=== PATIENT | female | born 1975 | race African-American/Black ===

== ENCOUNTER 2016-08-31 19:28 | Emergency (ER) | payer SELFPAY ==
[2016-08-31 19:44] VITALS: BP 137/77
[2016-08-31] MEDS ORDERED: ONDANSETRON 4 MG TAB.RAPDIS PO ONE (19:53)
--- NOTE | 2016-08-31 19:53 | ER Document Report ---
ED Medical Screen (RME) - General Stated Complaint: CHEST PAIN,SHORTNESS OF BREATH Mode of Arrival: Ambulatory Information source: Patient Notes: Patient complains of left-sided chest pain that radiates to shoulder that started around 6 PM today. Some shortness of breath. Patient complains of pain with deep inspiration. Patient also reports nausea and vomiting, but states vomiting symptoms started before her chest pain symptoms. hx: Elevated LFTs, pancreatitis, patient does report a family history of early heart disease I have greeted and performed a rapid initial assessment of this patient. A comprehensive ED assessment and evaluation of the patient, analysis of test results and completion of the medical decision making process will be conducted by additional ED providers. TRAVEL OUTSIDE OF THE [place] IN LAST 30 DAYS: No - Related Data Allergies/Adverse Reactions: tramadol Allergy (Severe, Verified 08/31/16 19:50) Edema oxycodone HCl [From Percocet] Allergy (Verified 08/31/16 19:50) Past Medical History - Past Medical History Cardiac Medical History: Reports: Hx Hypertension Pulmonary Medical History: Denies: Hx Tuberculosis Neurological Medical History: Reports: Hx Migraine Endocrine Medical History: Reports: Hx Diabetes Mellitus Type 2 Renal/ Medical History: Reports: Hx Ovarian Cysts Musculoskeltal Medical History: Reports Hx Arthritis, Reports Hx Musculoskeletal Deformity, Reports Hx Musculoskeletal Trauma Psychiatric Medical History: Reports: Hx Anxiety, Hx Depression Past Surgical History: Reports: Hx Cholecystectomy, Hx Gynecologic Surgery - Laparoscopic resection of ovarian cysts, Hx Hysterectomy - Part of liver removed with hysterectomy - Immunizations Hx Diphtheria, Pertussis, Tetanus Vaccination: No Physical Exam - Vital signs Vitals: Temp Pulse Resp BP Pulse Ox 97.9 F 85 16 137/77 H 97 08/31/16 19:43 08/31/16 19:43 08/31/16 19:43 08/31/16 19:43 08/31/16 19:43 - Cardiovascular Rhythm: Regular Heart sounds: S1 appreciated, S2 appreciated Murmur: No Course - Vital Signs Vital signs: Temp Pulse Resp BP Pulse Ox 97.9 F 85 16 137/77 H 97 08/31/16 19:43 08/31/16 19:43 08/31/16 19:43 08/31/16 19:43 08/31/16 19:43
[2016-08-31] MEDS ORDERED: ASPIRIN 81 MG TABLET, CHEWABLE PO ONE (19:54)
--- NOTE | 2016-09-01 18:15 | EKG REPORT ---
SEVERITY:- ABNORMAL ECG - SINUS RHYTHM CONSIDER LEFT VENTRICULAR HYPERTROPHY : Confirmed by: Duke Meza MD 01-Sep-2016 18:14:15
== END 2016-08-31 23:00 | disposition left against medical advice (07) ==
LOC: ER 19:28
DX: R07.1 Chest pain on breathing (principal); R06.02 Shortness of breath; R11.2 Nausea with vomiting, unspecified; I10 Essential (primary) hypertension; E11.9 Type 2 diabetes mellitus without complications; Z82.49 Family history of ischemic heart disease and other diseases of the circulatory system; Z88.5 Allergy status to narcotic agent; Z53.20 Procedure and treatment not carried out because of patient's decision for unspecified reasons
CPT/HCPCS: 93005; 99281; 71020; 93010; S0119

== ENCOUNTER 2017-07-20 12:03 | Emergency (ER) | payer SELFPAY ==
[2017-07-20] MEDS ORDERED: ONDANSETRON HCL INJ/PF 4 MG/2 ML SDV IV ONE (13:40)
[2017-07-20] MEDS ORDERED: NORMAL SALINE 1000 ML 1,000 ML IV ONE (13:40)
--- NOTE | 2017-07-20 13:42 | ER Document Report ---
ED General - General Chief Complaint: Nausea/Vomiting/Diarrhea Stated Complaint: NAUSEA,VOMITING,ABDOMINAL PAIN Time Seen by Provider: 07/20/17 13:31 Mode of Arrival: Ambulatory Information source: Patient Notes: 42-year-old female presents with complaints of generalized abdominal pain nausea vomiting diarrhea that started today. Patient notes that she has had multiple previous episodes of vomiting, 3 times she has had pancreatitis of unknown underlying cause. Patient denies any fevers or chills TRAVEL OUTSIDE OF THE [place] IN LAST 30 DAYS: No - HPI Onset: This morning Onset/Duration: Sudden Quality of pain: Cramping Severity: Mild Pain Level: 1 Associated symptoms: Diarrhea, Nausea, Vomiting Exacerbated by: Denies Relieved by: Denies Similar symptoms previously: Yes Recently seen / treated by doctor: No - Related Data Allergies/Adverse Reactions: tramadol Allergy (Severe, Verified 07/20/17 12:04) Edema oxycodone HCl [From Percocet] Allergy (Verified 07/20/17 12:04) Past Medical History - Social History Smoking Status: Current Every Day Smoker Cigarette use (# per day): Yes Chew tobacco use (# tins/day): No Smoking Education Provided: No Frequency of alcohol use: None Drug Abuse: None Family History: Arthritis, CAD, COPD, CVA, DM, Hyperlipidemia, Hypertension, Thyroid Disfunction Patient has suicidal ideation: No Patient has homicidal ideation: No - Past Medical History Cardiac Medical History: Reports: Hx Hypertension Pulmonary Medical History: Denies: Hx Tuberculosis Neurological Medical History: Reports: Hx Migraine Endocrine Medical History: Reports: Hx Diabetes Mellitus Type 2 Renal/ Medical History: Reports: Hx Ovarian Cysts. Denies: Hx Peritoneal Dialysis Musculoskeltal Medical History: Reports Hx Arthritis, Reports Hx Musculoskeletal Deformity, Reports Hx Musculoskeletal Trauma Psychiatric Medical History: Reports: Hx Anxiety, Hx Depression Past Surgical History: Reports: Hx Cholecystectomy, Hx Gynecologic Surgery - Laparoscopic resection of ovarian cysts, Hx Hysterectomy - Immunizations Hx Diphtheria, Pertussis, Tetanus Vaccination: No Review of Systems - Review of Systems Notes: REVIEW OF SYSTEMS: CONSTITUTIONAL : Denies fever, chills, or sweats. Denies recent illness. EENT: Denies eye, ear, throat, or mouth pain or symptoms. Denies nasal or sinus congestion or discharge. Denies throat, tongue, or mouth swelling or difficulty swallowing. CARDIOVASCULAR: Denies chest pain. Denies palpitations or racing or irregular heart beat. Denies ankle edema. RESPIRATORY: Denies cough, cold, or chest congestion. Denies shortness of breath, difficulty breathing, or wheezing. GASTROINTESTINAL: Admits nausea vomiting generalized abdominal pain GENITOURINARY: Denies difficulty urinating, painful urination, burning, frequency, blood in urine, or discharge. FEMALE GENITOURINARY: Denies vaginal bleeding, heavy or abnormal periods, irregular periods. Denies vaginal discharge or odor. MUSCULOSKELETAL: Denies back or neck pain or stiffness. Denies joint pain or swelling. SKIN: Denies rash, lesions or sores. HEMATOLOGIC : Denies easy bruising or bleeding. LYMPHATIC: Denies swollen, enlarged glands. NEUROLOGICAL: Denies confusion or altered mental status. Denies passing out or loss of consciousness. Denies dizziness or lightheadedness. Denies headache. Denies weakness or paralysis or loss of use of either side. Denies problems with gait or speech. Denies sensory loss, numbness, or tingling. Denies seizures. PSYCHIATRIC: Denies anxiety or stress. Denies depression, suicidal ideation, or homicidal ideation. ALL OTHER SYSTEMS REVIEWED AND NEGATIVE. PHYSICAL EXAMINATION: GENERAL: Well-appearing, well-nourished and in no acute distress. HEAD: Atraumatic, normocephalic. EYES: Pupils equal round and reactive to light, extraocular movements intact, conjunctiva are normal. ENT: Nares patent, oropharynx clear without exudates. Moist mucous membranes. NECK: Normal range of motion, supple without lymphadenopathy LUNGS: Breath sounds clear to auscultation bilaterally and equal. No wheezes rales or rhonchi. HEART: Regular rate and rhythm without murmurs ABDOMEN: Soft, minimally tender right upper quadrant postsurgical scars noted Female : deferred Musculoskeletal: Normal range of motion, no pitting or edema. No cyanosis. NEUROLOGICAL: Cranial nerves grossly intact. Normal speech, normal gait. Normal sensory, motor exams PSYCH: Normal mood, normal affect. SKIN: Warm, Dry, normal turgor, no rashes or lesions noted. Dictation was performed using [employer] recognition software Physical Exam - Vital signs Vitals: Temp Pulse Resp BP Pulse Ox 99.0 F 90 20 157/108 H 97 07/20/17 12:06 07/20/17 12:06 07/20/17 12:06 07/20/17 12:06 07/20/17 12:06 Course - Re-evaluation Re-evalutation: 07/20/17 13:42 Laboratory rule out pancreatitis been ordered, patient otherwise looks quite well no distress 07/20/17 15:33 Patient's lab work notes no sign of pancreatitis, patient will be treated as a viral syndrome with nausea control pain control After performing a Medical Screening Examination, I estimate there is LOW risk for ACUTE APPENDICITIS, BOWEL OBSTRUCTION, ACUTE CHOLECYSTITIS, PERFORATED DIVERTICULITIS, INCARCERATED HERNIA, PANCREATITIS, PELVIC INFLAMMATORY DISEASE, PERFORATED ULCER, ECTOPIC , or TUBO-OVARIAN ABSCESS, thus I consider the discharge disposition reasonable. Also, there is no evidence or peritonitis , sepsis, or toxicity. I have reevaluated this patient multiple times and no significant life threatening changes are noted. The patient and I have discussed the diagnosis and risks, and we agree with discharging home with close follow-up with the understanding that symptoms and presentations can change. We also discussed returning to the Emergency Department immediately if new or worsening symptoms occur. We have discussed the symptoms which are most concerning (e.g., bloody stool, fever, changing or worsening pain, vomiting) that necessitate immediate return. - Vital Signs Vital signs: Temp Pulse Resp BP Pulse Ox 99.0 F 90 20 157/108 H 97 07/20/17 12:06 07/20/17 12:06 07/20/17 12:06 07/20/17 12:06 07/20/17 12:06 - Laboratory Result Diagrams: 07/20/17 14:06 07/20/17 14:40 Laboratory results interpreted by me: 07/20/17 07/20/17 14:06 14:40 WBC 12.9 H RDW 14.1 H Chloride 112 H AST 11 L Total Protein 6.1 L Discharge - Discharge Clinical Impression: Nausea vomiting and diarrhea Abdominal pain Qualifiers: Abdominal location: epigastric Qualified Code(s): R10.13 - Epigastric pain Hypertension Qualifiers: Hypertension type: essential hypertension Qualified Code(s): I10 - Essential ( primary) hypertension Condition: Stable Disposition: HOME, SELF-CARE Instructions: Abdominal Pain ([facility]) Additional Instructions: Follow up with your physician tomorrow for further care or return to the ED IMMEDIATELY if symptoms worsen or new concerns occur. If you cannot afford to follow up with your primary care physician a list of low cost clinics have been provided at the end of your discharge papers as well. Prescriptions: Promethazine HCl [Phenergan 25 mg Tablet] 25 mg PO Q4HP PRN #14 tablet PRN Reason:
[2017-07-20 14:14] LABS: ABSOLUTE BASOPHILS # (AUTO) 0.1 10^3/uL (0.0-0.2); ABSOLUTE EOSINOPHILS # (AUTO) 0.1 10^3/uL (0.0-0.6); ABSOLUTE LYMPHOCYTES (AUTO) 4.4 10^3/uL (0.5-4.7); ABSOLUTE MONOCYTES (AUTO) 0.7 10^3/uL (0.1-1.4); ABSOLUTE NEUT (AUTO) 7.7 10^3/uL (1.7-8.2); BASOPHILS % (AUTO) 0.6 % (0-2); EOSINOPHILS % (AUTO) 0.6 % (0-6); HEMOGLOBIN 13.6 g/dL (12.0-15.5); LYMPHOCYTES % (AUTO) 34.2 % (13-45); MEAN CORPUSCULAR HEMOGLOBIN 28.1 pg (27.0-33.4); MEAN CORPUSCULAR HGB CONC 33.1 g/dL (32.0-36.0); MEAN CORPUSCULAR VOLUME 85 fl (80-97); MONOCYTES % (AUTO) 5.2 % (3-13); PLATELET COUNT 399 10^3/uL (150-450); RED BLOOD COUNT 4.83 10^6/uL (3.72-5.28); RED CELL DISTRIBUTION WIDTH 14.1 % (11.5-14.0); SEGMENTED NEUTROPHILS % (AUTO) 59.4 % (42-78); TOTAL CELLS COUNTED % (AUTO) 100 %; WHITE BLOOD COUNT 12.9 10^3/uL (4.0-10.5)
[2017-07-20 15:19] LABS: ALANINE AMINOTRANSFERASE 27 U/L (9-52); ALBUMIN 3.7 g/dL (3.5-5.0); ALKALINE PHOSPHATASE 40 U/L (38-126); ANION GAP 5 (5-19); ASPARTATE AMINO TRANSFERASE 11 U/L (14-36); BILIRUBIN,DIRECT 0.3 mg/dL (0.0-0.4); BILIRUBIN,TOTAL 0.3 mg/dL (0.2-1.3); BLOOD UREA NITROGEN 10 mg/dL (7-20); CALCIUM 9.2 mg/dL (8.4-10.2); CARBON DIOXIDE 26 mmol/L (22-30); CHLORIDE 112 mmol/L (98-107); GLUCOSE 77 mg/dL (75-110); LIPASE 82.6 U/L (23-300); POTASSIUM 3.9 mmol/L (3.6-5.0); SODIUM 143.3 mmol/L (137-145); TOTAL PROTEIN 6.1 g/dL (6.3-8.2)
[2017-07-20] MEDS ORDERED: LISINOPRIL 10 MG TABLET PO ONE (15:48)
[2017-07-20 16:05] VITALS: BP 207/93
== END 2017-07-20 16:03 | disposition home or self-care (01) ==
LOC: ER 12:03
DX: R11.2 Nausea with vomiting, unspecified (principal); R19.7 Diarrhea, unspecified; R10.84 Generalized abdominal pain; I10 Essential (primary) hypertension; F17.210 Nicotine dependence, cigarettes, uncomplicated; E11.9 Type 2 diabetes mellitus without complications; Z90.49 Acquired absence of other specified parts of digestive tract; Z90.710 Acquired absence of both cervix and uterus; Z88.5 Allergy status to narcotic agent
CPT/HCPCS: 99283; 96361; 96374; 36415; 83690; 85025; 80053; J2405; J7030

== ENCOUNTER 2020-04-12 07:51 | Emergency (ER) | payer SELFPAY ==
[2020-04-12] MEDS ORDERED: NORMAL SALINE 1000 ML 1,000 ML IV ONE ×2 (08:38→10:50)
[2020-04-12] MEDS ORDERED: ONDANSETRON HCL INJ/PF 4 MG/2 ML SDV IV ONE (08:38)
[2020-04-12] MEDS ORDERED: DICYCLOMINE HCL 20 MG TABLET PO ONE (08:39)
--- NOTE | 2020-04-12 08:43 | ER Document Report ---
ED GI/ - General Chief Complaint: Nausea/Vomiting/Diarrhea Stated Complaint: FEVER/NAUSEA/VOMITING/COUGH Time Seen by Provider: 04/12/20 08:17 Primary Care Provider: ROCHELLE WHITMAN MD [ACTIVE STAFF] - Follow up as needed Mode of Arrival: Ambulatory Information source: Patient Notes: Patient presents complaining of nausea vomiting diarrhea for the past 5 days. Patient does report multiple sick contacts in the household. Patient states that 3 days ago she did have a fever of 100.3. Patient states yesterday it was 99.3. Patient reports lower abdominal pain for the past 4 days that is crampy in nature. Patient reports decreased urine output for the past 2 days. Patient has had some headache pain. Patient is hypertensive at this time reports a previous history of hypertension although was taken off of her blood pressure medication for years ago as her blood pressure had come down and her doctor did not feel that she needed to be on it any longer. TRAVEL OUTSIDE OF THE [place] IN LAST 30 DAYS: No - HPI Patient complains to provider of: Abdominal pain, Diarrhea, Vomiting Onset: Other - 5 days Timing/Duration: Persistent Quality of pain: Cramping Pain Level: 4 Location: Other - Generalized abdomen Vaginal bleeding (Compared to normal period): None Menstrual period history: denies: Associated symptoms: Diarrhea, Nausea, Vomiting. denies: Chest pain, Dysuria, Urinary hesitancy, Urinary frequency, Urinary retention, Urinary urgency Exacerbated by: Denies Relieved by: Denies Similar symptoms previously: No Recently seen / treated by doctor: No - Related Data Allergies/Adverse Reactions: tramadol Allergy (Severe, Verified 07/20/17 12:04) Edema oxycodone HCl [From Percocet] Allergy (Verified 07/20/17 12:04) Past Medical History - General Information source: Patient - Social History Smoking Status: Current Every Day Smoker Frequency of alcohol use: None Drug Abuse: None Occupation: Works from home Lives with: Family Family History: Arthritis, CAD, COPD, CVA, DM, Hyperlipidemia, Hypertension, Thyroid Disfunction - Past Medical History Cardiac Medical History: Reports: Hx Hypertension Pulmonary Medical History: Denies: Hx Tuberculosis Neurological Medical History: Reports: Hx Migraine Endocrine Medical History: Reports: Hx Diabetes Mellitus Type 2 Renal/ Medical History: Reports: Hx Ovarian Cysts. Denies: Hx Peritoneal Dialysis Musculoskeletal Medical History: Reports Hx Arthritis, Reports Hx Musculoskeletal Deformity, Reports Hx Musculoskeletal Trauma Psychiatric Medical History: Reports: Hx Anxiety, Hx Depression Past Surgical History: Reports: Hx Cholecystectomy, Hx Gynecologic Surgery - Laparoscopic resection of ovarian cysts, Hx Hysterectomy - Immunizations Hx Diphtheria, Pertussis, Tetanus Vaccination: No Review of Systems - Review of Systems Constitutional: Fever EENT: No symptoms reported Cardiovascular: No symptoms reported. denies: Chest pain Respiratory: No symptoms reported. denies: Cough, Short of breath Gastrointestinal: Abdominal pain, Diarrhea, Nausea, Vomiting, Poor fluid intake Genitourinary: No symptoms reported. denies: Dysuria, Flank pain Female Genitourinary: No symptoms reported Musculoskeletal: No symptoms reported. denies: Back pain Skin: No symptoms reported Hematologic/Lymphatic: No symptoms reported Neurological/Psychological: No symptoms reported Physical Exam - Vital signs Vitals: Temp Pulse Resp BP Pulse Ox 98.8 F 93 18 228/141 H 97 04/12/20 07:58 04/12/20 07:58 04/12/20 07:58 04/12/20 07:58 04/12/20 07:58 - Notes Notes: PHYSICAL EXAMINATION: GENERAL: Well-appearing and in no acute distress. HEAD: Atraumatic, normocephalic. EYES: sclera anicteric, conjunctiva are normal. ENT: nares patent. Moist mucous membranes. NECK: Normal range of motion, supple without lymphadenopathy LUNGS: CTAB and equal. No wheezes rales or rhonchi. HEART: Regular rate and rhythm without murmurs ABDOMEN: Soft, diffuse abdominal tenderness, normal bowel sounds, no guarding. EXTREMITIES: Normal range of motion, no pitting edema. No cyanosis. BACK: Bilateral CVA tenderness, left worse than right NEUROLOGICAL: Cranial nerves grossly intact. Normal speech. PSYCH: Normal mood, normal affect. SKIN: Warm, Dry, normal turgor, no rashes or lesions noted Course - Re-evaluation Re-evalutation: 04/12/20 10:12 On repeat examination, patient reports nausea is improved although continues with abdominal pain. Additional medication ordered at this time. Patient con tinues hypertensive with blood pressure 206/110. 04/12/20 12:49 Patient reports mild abdominal cramping although states is not as severe as it was. Patient does continue hypertensive with manual blood pressure of 210/100. Consulted with Dr. Campos who recommends giving a dose of clonidine as well as additional 10 mg of lisinopril and monitoring at this time. Patient is agreeable with plan of care. 04/12/20 13:31 Pressure is trending downward at this time, patient advised that the will need to be restarted on her medication and monitor her blood pressure and keep a log for the primary doctor. Patient otherwise nontoxic in appearance. The patient was evaluated during the global Covid 19 pandemic, and that diagnosis was suspected/considered upon their initial presentation. Their evaluation, treatment and testing was consistent with current guidelines for patients who present with complaints or symptoms that may be related to Covid 19. Patient presents with symptoms worrisome for possible Covid 19. Patient does not have emergency worrying symptoms such as difficulty breathing, shortness of breath, chest pain, pressure, confusion or cyanosis. Patient appears suitable for disc harge as they are not of an advanced age, do not have any chronic medical conditions such as diabetes, CAD, immune deficiency, chronic lung disease or chronic kidney disease. Patient's vital signs are stable and patient is nontoxic in appearance. Good return precautions have been discussed with andrea rodgers, patient verbalized understanding and is agreeable with discharge plan of care at this time. - Vital Signs Vital signs: Temp Pulse Resp BP Pulse Ox 98.8 F 93 18 195/115 H 100 04/12/20 07:58 04/12/20 07:58 04/12/20 13:01 04/12/20 13:01 04/12/20 13:01 - Laboratory Result Diagrams: 04/12/20 08:55 04/12/20 08:55 Laboratory results interpreted by me: 04/12/20 04/12/20 04/12/20 08:55 08:55 11:30 WBC 12.7 H RDW 15.1 H Absolute Neuts (auto) 9.0 H Carbon Dioxide 20 L Urine Blood SMALL H Ur Leukocyte Esterase SMALL H Labs- All tests 24 hr 04/12/20 04/12/20 04/12/20 08:55 08:55 11:30 WBC 12.7 H RBC 5.02 Hgb 13.7 Hct 41.6 MCV 83 MCH 27.3 MCHC 32.9 RDW 15.1 H Plt Count 416 Lymph % (Auto) 22.9 Millard % (Auto) 5.4 Eos % (Auto) 0.5 Baso % (Auto) 0.4 Absolute Neuts (auto) 9.0 H Absolute Lymphs (auto) 2.9 Absolute Monos (auto) 0.7 Absolute Eos (auto) 0.1 Absolute Basos (auto) 0.0 Seg Neutrophils % 70.8 Sodium 137.8 Potassium 4.1 Chloride 107 Carbon Dioxide 20 L Anion Gap 11 BUN 10 Creatinine 0.64 Est GFR ( Amer) > 60 Est GFR (MDRD) Non-Af > 60 Glucose 104 Calcium 9.7 Total Bilirubin 0.7 Direct Bilirubin 0.2 Neonat Total Bilirubin Not Reportable Neonat Direct Bilirubin Not Reportable Neonat Indirect Bili Not Reportable AST 19 ALT 11 Alkaline Phosphatase 50 Total Protein 7.6 Albumin 4.4 Lipase 37.1 Urine Color YELLOW Urine Appearance CLEAR Urine pH 5.0 Ur Specific [place] 1.039 Urine Protein NEGATIVE Urine Glucose (UA) NEGATIVE Urine Ketones NEGATIVE Urine Blood SMALL H Urine Nitrite NEGATIVE Urine Bilirubin NEGATIVE Urine Urobilinogen NEGATIVE Ur Leukocyte Esterase SMALL H Urine WBC (Auto) 4 Urine RBC (Auto) 5 U Hyaline Cast (Auto) 1 Urine Bacteria (Auto) TRACE Squamous Epi Cells Auto 3 Urine Mucus (Auto) MOD Urine Ascorbic Acid NEGATIVE COVID-19 Source 04/12/20 12:17 WBC RBC Hgb Hct MCV MCH MCHC RDW Plt Count Lymph % (Auto) Millard % (Auto) Eos % (Auto) Baso % (Auto) Absolute Neuts (auto) Absolute Lymphs (auto) Absolute Monos (auto) Absolute Eos (auto) Absolute Basos (auto) Seg Neutrophils % Sodium Potassium Chloride Carbon Dioxide Anion Gap BUN Creatinine Est GFR ( Amer) Est GFR (MDRD) Non-Af Glucose Calcium Total Bilirubin Direct Bilirubin Neonat Total Bilirubin Neonat Direct Bilirubin Neonat Indirect Bili AST ALT Alkaline Phosphatase Total Protein Albumin Lipase Urine Color Urine Appearance Urine pH Ur Specific [place] Urine Protein Urine Glucose (UA) Urine Ketones Urine Blood Urine Nitrite Urine Bilirubin Urine Urobilinogen Ur Leukocyte Esterase Urine WBC (Auto) Urine RBC (Auto) U Hyaline Cast (Auto) Urine Bacteria (Auto) Squamous Epi Cells Auto Urine Mucus (Auto) Urine Ascorbic Acid COVID-19 Source See comment - Diagnostic Test Radiology reviewed: Reports reviewed Discharge - Discharge Clinical Impression: Nausea vomiting and diarrhea, Encounter for screening laboratory testing for COVID-19 virus Hypertension Qualifiers: Hypertension type: unspecified Qualified Code(s): I10 - Essential (primary) hypertension Condition: Stable Disposition: HOME, SELF-CARE Instructions: COVID-19 Guidance for Persons Under Investigation, Antinausea Medication ([facility]), Diarrhea, Nonspecific ([facility]), High Blood Pressure, Requiring Treatment ([facility]), Intravenous (IV) Fluids ([facility]), Vomiting ([facility]) Additional Instructions: Return immediately for any new or worsening symptoms Followup with your primary care provider, call tomorrow to make a followup appointment Home quarantine as instructed while you wait for your Covid results Monitor your blood pressure daily and keep a log to present to your primary doctor for review. Obtain stool specimen and bring to lab for further evaluation Prescriptions: Dicyclomine HCl [Bentyl 20 mg Tablet] 20 mg PO QID PRN #12 tablet PRN Reason: Lisinopril/Hydrochlorothiazide [Lisinopril-Hctz 20-12.5 mg Tab] 1 each PO DAILY #30 tablet Ondansetron [Zofran Odt 4 mg Tablet] 1 tab PO Q6H #15 tab.rapdis Forms: Follow-Up Laboratory Testing, Return to Work Referrals: ROCHELLE WHITMAN MD [ACTIVE STAFF] - Follow up as needed
[2020-04-12 09:26] LABS: ABSOLUTE EOSINOPHILS # (AUTO) 0.1 10^3/uL (0.0-0.6); ABSOLUTE LYMPHOCYTES (AUTO) 2.9 10^3/uL (0.5-4.7); ABSOLUTE MONOCYTES (AUTO) 0.7 10^3/uL (0.1-1.4); BASOPHILS % (AUTO) 0.4 % (0-2); EOSINOPHILS % (AUTO) 0.5 % (0-6); HEMATOCRIT 41.6 % (36.0-47.0); HEMOGLOBIN 13.7 g/dL (12.0-15.5); LYMPHOCYTES % (AUTO) 22.9 % (13-45); MEAN CORPUSCULAR HEMOGLOBIN 27.3 pg (27.0-33.4); MEAN CORPUSCULAR HGB CONC 32.9 g/dL (32.0-36.0); MEAN CORPUSCULAR VOLUME 83 fl (80-97); MONOCYTES % (AUTO) 5.4 % (3-13); PLATELET COUNT 416 10^3/uL (150-450); RED BLOOD COUNT 5.02 10^6/uL (3.72-5.28); RED CELL DISTRIBUTION WIDTH 15.1 % (11.5-14.0); SEGMENTED NEUTROPHILS % (AUTO) 70.8 % (42-78); TOTAL CELLS COUNTED % (AUTO) 100 %; WHITE BLOOD COUNT 12.7 10^3/uL (4.0-10.5)
[2020-04-12 09:46] LABS: ALBUMIN 4.4 g/dL (3.5-5.0); ALKALINE PHOSPHATASE 50 U/L (38-126); ANION GAP 11 (5-19); ASPARTATE AMINO TRANSFERASE 19 U/L (14-36); BILIRUBIN,DIRECT 0.2 mg/dL (0.0-0.4); BILIRUBIN,TOTAL 0.7 mg/dL (0.2-1.3); BLOOD UREA NITROGEN 10 mg/dL (7-20); CALCIUM 9.7 mg/dL (8.4-10.2); CARBON DIOXIDE 20 mmol/L (22-30); CHLORIDE 107 mmol/L (98-107); GLUCOSE 104 mg/dL (75-110); TOTAL PROTEIN 7.6 g/dL (6.3-8.2)
[2020-04-12 10:02] LABS: POTASSIUM 4.1 mmol/L (3.6-5.0)
[2020-04-12] MEDS ORDERED: LISINOPRIL 10 MG TABLET PO ONE ×2 (10:10→12:48)
[2020-04-12] MEDS ORDERED: HYDROCHLOROTHIAZIDE 12.5 MG TABLET PO ONE (10:10)
[2020-04-12] MEDS ORDERED: FENTANYL CITRATE INJ/PF 100 MCG/2 ML AMPUL IV ONE (10:11)
--- NOTE | 2020-04-12 11:14 | RADIOLOGY REPORT (SQ) ---
EXAM DESCRIPTION: CT ABD/PELVIS WITH IV ONLY IMAGES COMPLETED DATE/TIME: 04/12/2020 11:02 am REASON FOR STUDY: abd pain, N/v/d COMPARISON: None. TECHNIQUE: CT scan of the abdomen and pelvis performed using helical scanning technique with dynamic intravenous contrast injection. No oral contrast. Images reviewed with lung, soft tissue, and bone windows. Reconstructed coronal and sagittal MPR images reviewed. Delayed images for evaluation of the urinary system also acquired. All images stored on PACS. All CT scanners at this facility use dose modulation, iterative reconstruction, and/or weight based d osing when appropriate to reduce radiation dose to as low as reasonably achievable (ALARA). [facility]: Dose Right [facility]: CareDose [facility]: Dose Right [facility]: Teradose 4D [facility]: Paylocity CONTRAST TYPE AND DOSE: contrast/concentration: Isovue 350.00 mmol/ml; Total Contrast Delivered: 100 .0 ml; Total Saline Delivered: 51.3 ml RENAL FUNCTION: Creatinine 0.64 RADIATION DOSE: CT Rad equipment meets quality standard of care and radiation dose reduction techniq ues were employed. CTDIvol: 12.2 - 16.2 mGy. DLP: 1563 mGy-cm.. LIMITATIONS: None. FINDINGS: LOWER CHEST: No significant findings. No nodules or infiltrates. LIVER: Normal size. No masses. No dilated ducts. SPLEEN: Normal size. No focal lesions. PANCREAS: No masses. No significant calcifications. No adjacent inflammation or peripancreatic fluid collections. Pancreatic duct not dilated. GALLBLADDER: Surgically absent. ADRENAL GLANDS: No significant masses or asymmetry. RIGHT KIDNEY AND URETER: No solid masses. No significant calcifications. No hydronephrosis or hyd roureter. LEFT KIDNEY AND URETER: No solid masses. No significant calcifications. No hydronephrosis or hydr oureter. AORTA AND VESSELS: No aneurysm. No dissection. Renal arteries, SMA, celiac without stenosis. RETROPERITONEUM: No retroperitoneal adenopathy, hemorrhage or masses. BOWEL AND PERITONEAL CAVITY: No masses or inflammatory changes. No free fluid or peritoneal masses. APPENDIX: Normal. PELVIS: No mass. No free fluid. Normal bladder. ABDOMINAL WALL: Small fat containing supraumbilical hernia. No subcutaneous masses. BONES: No acute bony abnormality. No suspicious lytic or blastic osseous lesions. OTHER: No other significant finding. IMPRESSION: No evidence of intestinal obstruction or other acute intra-abdominal/pelvic process. TECHNICAL DOCUMENTATION: JOB ID: [id number] Quality ID # [id number]: Final reports with documentation of one or more dose reduction techniques (e.g., Au tomated exposure control, adjustment of the mA and/or kV according to patient size, use of iterative reconstruction technique) 2010 [email or web address]- All Rights Reserved Reading location - IP/workstation name: [email or web address]
[2020-04-12 11:46] LABS: APPEARANCE,URINE CLEAR; BILIRUBIN,URINE NEGATIVE (NEGATIVE); COLOR,URINE YELLOW; GLUCOSE, URINE NEGATIVE (NEGATIVE); KETONES,URINE NEGATIVE (NEGATIVE); LEUKOCYTE ESTERASE,URINE SMALL (NEGATIVE); NITRITE,URINE NEGATIVE (NEGATIVE); PROTEIN,URINE NEGATIVE (NEGATIVE); URINE SPECIFIC GRAVITY 1.039; UROBILINOGEN,URINE NEGATIVE mg/dL (<2.0)
[2020-04-12] MEDS ORDERED: CLONIDINE HCL 0.1 MG TABLET PO ONE (12:48)
[2020-04-12 13:44] VITALS: BP 195/115
== END 2020-04-12 14:04 | disposition home or self-care (01) ==
LOC: ER 07:51
DX: R11.2 Nausea with vomiting, unspecified (principal); R19.7 Diarrhea, unspecified; R50.9 Fever, unspecified; R10.30 Lower abdominal pain, unspecified; R33.9 Retention of urine, unspecified; R51.9 Headache, unspecified; R10.84 Generalized abdominal pain; R10.9 Unspecified abdominal pain; R63.0 Anorexia; I10 Essential (primary) hypertension; Z20.828 Contact with and (suspected) exposure to other viral communicable diseases
CPT/HCPCS: 99285; 96361; 96374; 96375; 36415; 87040; 83690; 85025; 87635; 87077; 80053; 81001; 87150 ×26; 74177; J3490; J3010; J2405; J7030; C9803

== ENCOUNTER 2020-04-18 20:51 | Observation (INO) | payer SELFPAY ==
--- NOTE | 2020-04-18 21:50 | ER Document Report ---
ED Medical Screen (RME) - General Stated Complaint: BURNING IN THROAT AND CHEST Time Seen by Provider: 04/18/20 21:45 Mode of Arrival: Ambulatory Information source: Patient Notes: Patient is a 45-year-old -[place] female coming in today with severe sore throat and a burning in the middle of her chest. She was here recently and was seen for something similar. Her Covid test was negative. She states that s he did not have any other testing done. General: Nontoxic Regular rate and rhythm Clear to auscultation bilaterally Posterior pharynx without exudates or swelling Skin without rash. I have greeted and performed a rapid initial assessment of this patient. A comprehensive ED assessment and evaluation of the patient, analysis of test results and completion of the medical decision making process will be conducted by additional ED providers. TRAVEL OUTSIDE OF THE [place] IN LAST 30 DAYS: No - Related Data Allergies/Adverse Reactions: tramadol Allergy (Severe, Verified 07/20/17 12:04) Edema oxycodone HCl [From Percocet] Allergy (Verified 07/20/17 12:04) Past Medical History - Past Medical History Cardiac Medical History: Reports: Hx Hypertension Pulmonary Medical History: Denies: Hx Tuberculosis Neurological Medical History: Reports: Hx Migraine Endocrine Medical History: Reports: Hx Diabetes Mellitus Type 2 Renal/ Medical History: Reports: Hx Ovarian Cysts. Denies: Hx Peritoneal Dialysis Musculoskeltal Medical History: Reports Hx Arthritis, Reports Hx Musculoskeletal Deformity, Reports Hx Musculoskeletal Trauma Psychiatric Medical History: Reports: Hx Anxiety, Hx Depression Past Surgical History: Reports: Hx Cholecystectomy, Hx Gynecologic Surgery - Laparoscopic resection of ovarian cysts, Hx Hysterectomy - Immunizations Hx Diphtheria, Pertussis, Tetanus Vaccination: No Physical Exam - Vital signs Vitals: Temp Pulse Resp BP Pulse Ox 98.6 F 77 18 178/101 H 98 04/18/20 20:59 04/18/20 20:59 04/18/20 20:59 04/18/20 20:59 04/18/20 20:59 Course - Vital Signs Vital signs: Temp Pulse Resp BP Pulse Ox 98.6 F 77 18 178/101 H 98 04/18/20 20:59 04/18/20 20:59 04/18/20 20:59 04/18/20 20:59 04/18/20 20:59
--- NOTE | 2020-04-18 22:29 | RADIOLOGY REPORT (SQ) ---
CHEST X-RAY 1 VIEW on 04/18/2020 at 9:54 PM CLINICAL INDICATION: Chest pain COMPARISON: 08/31/2016 FINDINGS: The lungs are clear. Cardiac, hilar and mediastinal contours are within normal limits. Pulmonary vascularity is within normal limits. No bony abnormality is noted. IMPRESSION: No active disease.
[2020-04-18 22:45] LABS: ABSOLUTE BASOPHILS # (AUTO) 0.1 10^3/uL (0.0-0.2); ABSOLUTE EOSINOPHILS # (AUTO) 0.1 10^3/uL (0.0-0.6); ABSOLUTE LYMPHOCYTES (AUTO) 5.1 10^3/uL (0.5-4.7); ABSOLUTE MONOCYTES (AUTO) 0.8 10^3/uL (0.1-1.4); ABSOLUTE NEUT (AUTO) 7.6 10^3/uL (1.7-8.2); BASOPHILS % (AUTO) 0.8 % (0-2); HEMATOCRIT 39.9 % (36.0-47.0); HEMOGLOBIN 13.3 g/dL (12.0-15.5); LYMPHOCYTES % (AUTO) 36.9 % (13-45); MEAN CORPUSCULAR HEMOGLOBIN 27.9 pg (27.0-33.4); MEAN CORPUSCULAR HGB CONC 33.4 g/dL (32.0-36.0); MEAN CORPUSCULAR VOLUME 83 fl (80-97); MONOCYTES % (AUTO) 5.8 % (3-13); PLATELET COUNT 409 10^3/uL (150-450); RED BLOOD COUNT 4.79 10^6/uL (3.72-5.28); RED CELL DISTRIBUTION WIDTH 14.7 % (11.5-14.0); SEGMENTED NEUTROPHILS % (AUTO) 55.5 % (42-78); TOTAL CELLS COUNTED % (AUTO) 100 %; WHITE BLOOD COUNT 13.7 10^3/uL (4.0-10.5)
[2020-04-18 22:54] LABS: APPEARANCE,URINE SLIGHTLY-CLOUDY; BILIRUBIN,URINE NEGATIVE (NEGATIVE); COLOR,URINE YELLOW; GLUCOSE, URINE NEGATIVE (NEGATIVE); KETONES,URINE NEGATIVE (NEGATIVE); PROTEIN,URINE NEGATIVE (NEGATIVE); URINE SPECIFIC GRAVITY 1.021; UROBILINOGEN,URINE NEGATIVE mg/dL (<2.0)
[2020-04-18 23:04] LABS: A TYPE INFLUENZA AG NEGATIVE (NEGATIVE); B INFLUENZA AG NEGATIVE (NEGATIVE)
[2020-04-18 23:11] LABS: ALBUMIN 4.2 g/dL (3.5-5.0); ALKALINE PHOSPHATASE 55 U/L (38-126); ANION GAP 11 (5-19); ASPARTATE AMINO TRANSFERASE 16 U/L (14-36); BILIRUBIN,DIRECT 0.1 mg/dL (0.0-0.4); BILIRUBIN,TOTAL 0.3 mg/dL (0.2-1.3); BLOOD UREA NITROGEN 16 mg/dL (7-20); CARBON DIOXIDE 21 mmol/L (22-30); CHLORIDE 107 mmol/L (98-107); GLUCOSE 104 mg/dL (75-110); POTASSIUM 4.1 mmol/L (3.6-5.0); TOTAL PROTEIN 7.1 g/dL (6.3-8.2)
--- NOTE | 2020-04-19 00:22 | ER Document Report ---
Entered by JESIKA HOSKINS SCRIBE 04/19/20 0007 Acting as scribe for:LORENZA MERINO, DO ED General - General Chief Complaint: Flu Symptoms Stated Complaint: BURNING IN THROAT AND CHEST Time Seen by Provider: 04/18/20 21:45 Primary Care Provider: ROCHELLE WHITMAN MD [Primary Care Provider] - Follow up as needed Mode of Arrival: Ambulatory Information source: Patient Notes: This 45 year old female patient presents to the emergency department today with complaints of reproducible chest wall pain and a sore throat, stating her chest and throat feel like they are "on fire". Patient mentions that she was here x4-5 days ago for nausea, vomiting, and diarrhea and she was quite hypertensive then which is why her chest pain scared her today. She mentions she has a cough and nasal congestion today. She denies any sick contacts. TRAVEL OUTSIDE OF THE [place] IN LAST 30 DAYS: No - Related Data Allergies/Adverse Reactions: tramadol Allergy (Severe, Verified 07/20/17 12:04) Edema oxycodone HCl [From Percocet] Allergy (Verified 07/20/17 12:04) Home Medications: zofran, lisinopril/HCTZ, bentyl Past Medical History - General Information source: Patient - Social History Smoking Status: Current Every Day Smoker Cigarette use (# per day): Yes Frequency of alcohol use: None Drug Abuse: None Lives with: Family Family History: Arthritis, CAD, COPD, CVA, DM, Hyperlipidemia, Hypertension, Thyroid Disfunction - Past Medical History Cardiac Medical History: Reports: Hx Hypertension Neurological Medical History: Reports: Hx Migraine Endocrine Medical History: Reports: Hx Diabetes Mellitus Type 2 Renal/ Medical History: Reports: Hx Ovarian Cysts Musculoskeletal Medical History: Reports Hx Arthritis, Reports Hx Musculoskeletal Deformity, Reports Hx Musculoskeletal Trauma Psychiatric Medical History: Reports: Hx Anxiety, Hx Depression Past Surgical History: Reports: Hx Cholecystectomy, Hx Gynecologic Surgery - Laparoscopic resection of ovarian cysts, Hx Hysterectomy - Immunizations Hx Diphtheria, Pertussis, Tetanus Vaccination: No Review of Systems - Review of Systems Constitutional: No symptoms reported EENT: See HPI, Nose congestion, Throat pain Cardiovascular: See HPI, Chest pain Respiratory: See HPI, Cough Gastrointestinal: See HPI, Diarrhea, Nausea, Vomiting Genitourinary: No symptoms reported Female Genitourinary: No symptoms reported Musculoskeletal: No symptoms reported Skin: No symptoms reported Hematologic/Lymphatic: No symptoms reported Neurological/Psychological: No symptoms reported -: Yes All other systems reviewed and negative Physical Exam - Vital signs Vitals: Temp Pulse Resp BP Pulse Ox 98.6 F 77 18 178/101 H 98 04/18/20 20:59 04/18/20 20:59 04/18/20 20:59 04/18/20 20:59 04/18/20 20:59 - Notes Notes: Physical Exam: General: Alert, morbidly obese. HEENT: Normocephalic. Atraumatic. PERRL. Extraocular movements intact. Oropharynx clear. Neck: Supple. Non-tender. Respiratory: No respiratory distress. Left anterior chest wall tenderness to palpation, reproducible chest pain. Clear and equal breath sounds bilaterally. Cardiovascular: Regular rate and rhythm. Abdominal: Morbidly obese. Non-tender. No distension. Normal Bowel Sounds. Back: No gross abnormalities. Extremities: Moves all four extremities. Upper extremities: Normal inspection. Normal ROM. Lower extremities: Normal inspection. No edema. Normal ROM. Neurological: Normal cognition. AAOx4. Normal speech. Psychological: Normal affect. Normal Mood. Skin: Warm. Dry. Normal color. Course - Re-evaluation Re-evalutation: 04/19/20 00:58 MDM Delightful 45 year old with poorly controlled htn - BP 228/141 last week - is here with htn and sore throat and nausea and chest pain. Do not feel this is ACS as pt is comfortable in appearance, ekg is without abnormality except LVH - longstanding htn - and her cxr is without failure. She may have a bit of a sore throat and is sore in her chest which is clearly palpable and reproducible. I have discussed this nice lady with Dr. Rosenbaum and Dr. Trevino and she will be admitted for further workup. - Vital Signs Vital signs: Temp Pulse Resp BP Pulse Ox 98.6 F 77 20 159/99 H 100 04/18/20 20:59 04/18/20 20:59 04/19/20 00:01 04/19/20 00:01 04/19/20 00:01 - Laboratory Result Diagrams: 04/18/20 22:20 04/18/20 22:20 Laboratory results interpreted by me: 04/18/20 04/18/20 04/18/20 22:20 22:20 22:20 WBC 13.7 H RDW 14.7 H Absolute Lymphs (auto) 5.1 H Carbon Dioxide 21 L Urine Blood SMALL H Leukocyte Esterase Rfl LARGE H - Diagnostic Test Radiology reviewed: Image reviewed, Reports reviewed - EKG Interpretation by Me EKG shows normal: Sinus rhythm Rate: Bradycardia Rhythm: NSR - Sinus Adalberto Nl Art LVH No st elevation or depression my interpretation. Discharge - Discharge Clinical Impression: Elevated troponin Hypertension Qualifiers: Hypertension type: unspecified Qualified Code(s): I10 - Essential (primary) hypertension Condition: Stable Disposition: ADMITTED OBSERVATION Admitting Provider: Dr. Trevino Unit Admitted: Telemetry Referrals: ROCHELLE WHITMAN MD [Primary Care Provider] - Follow up as needed I personally performed the services described in the documentation, reviewed and edited the documentation which was dictated to the scribe in my presence, and it accurately records my words and actions.
[2020-04-19] MEDS ORDERED: ASPIRIN 81 MG TABLET, CHEWABLE PO ONE (00:36)
[2020-04-19] MEDS ORDERED: FENTANYL CITRATE INJ/PF 100 MCG/2 ML AMPUL IV ONE (00:57)
[2020-04-19] MEDS ORDERED: ONDANSETRON HCL INJ/PF 4 MG/2 ML SDV IV ONE (00:57)
[2020-04-19] MEDS ORDERED: ONDANSETRON HCL INJ/PF 4 MG/2 ML SDV IV PRN (02:10)
--- NOTE | 2020-04-19 02:27 | PDOC H&P ---
History of Present Illness Admission Date/PCP: 04/19/20 01:16 ROCHELLE WHITMAN MD Patient complains of: chest pain History of Present Illness: SELIN BUSCH is a 45 year old female with a history of poorly controlled hypertension now presents with 2 days duration of retrosternal chest pain. She described the pain as burning and heaviness, 8/10 intensity, nonradiating, aggravated when lying back and gets better with leaning forward. She also states that she feels some pain with exertion. She states that she has burning neck pain which moves to her chest. She was seen at the emergency department 7 days back after she presented with symptoms of upper respiratory tract infection with associated nausea, vomiting and was discharged home with supportive pradip tment. On that visit she was also found to have very high blood pressure with a systolic around 200, diastolic between 110-110 and she was started on lisinopril/HCTZ. She states that previously she used to be on antihypertensive medication but was discontinued around 4 years back by her PCP and was controlled with lifestyle modifications and has not been checking her blood pressure regularly. She was tested for COVID-19 at her last encounter and the result is negative. She denies any fever, chills, cough, palpitation, headache, blurring of vision, weakness of extremities or any numbness or tingling. Past Medical History Cardiac Medical History: Reports: Hypertension Pulmonary Medical History: Denies: Tuberculosis Neurological Medical History: Reports: Migraine Endocrine Medical History: Reports: Diabetes Mellitus Type 2 Musculoskeltal Medical History: Reports: Arthritis Psychiatric Medical History: Reports: Depression Past Surgical History Past Surgical History: Reports: Cholecystectomy, Hysterectomy Social History Information Source: Patient Lives with: Family Smoking Status: Current Every Day Smoker Frequency of Alcohol Use: Social Hx Recreational Drug Use: Yes - for n/v Drugs: Marijuana - Advance Directive Resuscitation Status: Full Code Family History Family History: Arthritis, CAD, COPD, CVA, DM, Hyperlipidemia, Hypertension, Thyroid Disfunction Parental Family History Reviewed: Yes Children Family History Reviewed: Yes Sibling(s) Family History Reviewed.: Yes Medication/Allergy Home Medications: Dicyclomine HCl [Bentyl 20 mg Tablet] 20 mg PO QID PRN #12 tablet 04/12/20 Lisinopril/Hydrochlorothiazide [Lisinopril-Hctz 20-12.5 mg Tab] 1 each PO DAILY #30 tablet 04/12/20 Ondansetron [Zofran Odt 4 mg Tablet] 1 tab PO Q6H #15 tab.rapdis 04/12/20 Allergies/Adverse Reactions: tramadol Allergy (Severe, Verified 07/20/17 12:04) Edema oxycodone HCl [From Percocet] Allergy (Verified 07/20/17 12:04) Review of Systems Constitutional: ABSENT: chills, fever(s), headache(s), weight gain, weight loss Eyes: ABSENT: visual disturbances Ears: ABSENT: hearing changes Nose, Mouth, and Throat: ABSENT: as per HPI, headache(s), mouth pain, sore throat, vertigo, other Cardiovascular: PRESENT: as per HPI Respiratory: PRESENT: as per HPI Gastrointestinal: PRESENT: as per HPI Genitourinary: ABSENT: dysuria, hematuria Musculoskeletal: ABSENT: joint swelling Neurological: ABSENT: abnormal gait, abnormal speech, confusion, dizziness, focal weakness, syncope Psychiatric: ABSENT: anxiety, depression, homidical ideation, suicidal ideation Endocrine: ABSENT: cold intolerance, heat intolerance, polydipsia, polyuria Hematologic/Lymphatic: ABSENT: easy bleeding, easy bruising Physical Exam Vital Signs: Temp Pulse Resp BP Pulse Ox 98.6 F 77 20 159/99 H 100 04/18/20 20:59 04/18/20 20:59 04/19/20 00:01 04/19/20 00:01 04/19/20 00:01 Intake & Output 04/17/20 04/18/20 04/19/20 06:59 06:59 06:59 Weight 97.522 kg Additional comments: GENERAL APPEARANCE: Alert and oriented x3, no acute distress HEENT: Normocephalic and atraumatic. No scleral icterus. Moist oral mucosa NECK: Supple. No lymphadenopathy or tenderness. No carotid bruit. No JVD CHEST: Symmetric. Has tenderness to palpation on the left precordial area LUNGS: Clear with good air entry bilaterally. No wheezing or crackles HEART: Regular rate and rhythm with normal S1 and S2. No murmurs, gallops, or rubs. ABDOMEN: Flat, soft, active bowel sounds, no direct or rebound tenderness. No organomegaly detected. EXTREMITIES: No cyanosis, clubbing, or edema. MUSCULOSKELETAL: No deformity, atrophy or swelling noted PSYCHIATRIC: Recent and remote memory is intact. Appropriate mood and affect. SKIN: Warm, dry, and well perfused. No lesions or rashes are noted. NEUROLOGIC: No focal sensory or motor deficits are noted. Results Laboratory Results: 04/18/20 22:20 04/18/20 22:20 04/18/20 04/18/20 04/18/20 22:20 22:20 22:20 WBC 13.7 H RBC 4.79 Hgb 13.3 Hct 39.9 MCV 83 MCH 27.9 MCHC 33.4 RDW 14.7 H Plt Count 409 Seg Neutrophils % 55.5 Sodium 138.8 Potassium 4.1 Chloride 107 Carbon Dioxide 21 L Anion Gap 11 BUN 16 Creatinine 0.81 Est GFR ( Amer) > 60 Glucose 104 Calcium 10.0 Total Bilirubin 0.3 AST 16 Alkaline Phosphatase 55 C-Reactive Protein Total Protein 7.1 Albumin 4.2 Urine Color YELLOW Urine Appearance SLIGHTLY-CLOUDY Urine pH 5.0 Ur Specific [place] 1.021 Urine Protein NEGATIVE Urine Glucose (UA) NEGATIVE Urine Ketones NEGATIVE Urine Blood SMALL H Urine RBC (Auto) 12 04/18/20 22:22 WBC RBC Hgb Hct MCV MCH MCHC RDW Plt Count Seg Neutrophils % Sodium Potassium Chloride Carbon Dioxide Anion Gap BUN Creatinine Est GFR ( Amer) Glucose Calcium Total Bilirubin AST Alkaline Phosphatase C-Reactive Protein 9.4 Total Protein Albumin Urine Color Urine Appearance Urine pH Ur Specific [place] Urine Protein Urine Glucose (UA) Urine Ketones Urine Blood Urine RBC (Auto) 04/18/20 04/18/20 22:20 22:20 Troponin I 0.611 NT-Pro-B Natriuret Pep 441 H Impressions: Chest X-Ray 04/18/20 21:47 IMPRESSION: No active disease. Assessment and Plan - Diagnosis (1) Chest pain Is this a current diagnosis for this admission?: Yes Plan: Patient presents with 1 day duration of chest pain Current symptoms of viral infection for a week Pain is positional which is relieved by leaning forward Likely cause could be non-STEMI type II due to uncontrolled hypertension vs viral pericarditis/myocarditis No pericardial friction rub was appreciated on physical exam EKG showed no ST-T wave changes consistent with ischemia Troponin was elevated at 0.611 Trend cardiac enzymes every 6 hourly and EKG Continue telemetry monitoring Started on aspirin, atorvastatin Will get lipid panel, echocardiography Optimally controlled blood pressure Cardiology consult in the morning (2) Elevated troponin Is this a current diagnosis for this admission?: Yes Plan: Likely type II non-STEMI due to uncontrolled hypertension Chest pain is reproducible on palpation and is also positional Troponin 0.611 EKG: Left ventricular hypertrophy but no ST-T wave changes Continue trending cardiac enzymes and EKG Continue to monitor with telemetry Continue aspirin, atorvastatin If troponin trends up, will initiate full ACS protocol Sublingual nitroglycerin as needed for pain Cardiology consult in the morning Will get stress test (3) Hypertension Qualifiers: Hypertension type: unspecified Qualified Code(s): I10 - Essential (primary) hypertension Is this a current diagnosis for this admission?: Yes Plan: Continue low-sodium diet Lisinopril 20 mg daily and HCTZ 25 mg p.o. daily Continue to monitor vitals - Time Time Spent with patient: 35 or more minutes Total Critical Time (Minutes): 40 Smoking Cessation Education: 3 to 10 minutes Medications reviewed and adjusted accordingly: Yes Anticipated Discharge Disposition: Home, Self Care Anticipated Discharge Timeframe: within 48 hours - Inpatient Certification Based on my medical assessment, after consideration of the patient's comorbidities, presenting symptoms, or acuity I expect that the services needed warrant INPATIENT care.: Yes I certify that my determination is in accordance with my understanding of Medicare's requirements for reasonable and necessary INPATIENT services [42 CFR 412.3e].: Yes Medical Necessity: Need For Continuous Telemetry Monitoring, Risk of Complication if Not Cared For in Hospital Post Hospital Care: D/C or Transfer Summary
[2020-04-19] MEDS: ATORVASTATIN CALCIUM 40 MG TABLET PO SCH ×2 (02:36→22:15)
[2020-04-19 05:13] LABS: CHOLESTEROL 212.59 mg/dL (0-200); TRIGLYCERIDES 193 mg/dL (<150)
[2020-04-19 05:24] LABS: DIRECT LDL 151 mg/dL (<100)
[2020-04-19 05:28] LABS: VLDL CHOLESTEROL 38.6 mg/dL (10-31)
--- NOTE | 2020-04-19 05:28 | EKG REPORT ---
SEVERITY:- ABNORMAL ECG - SINUS RHYTHM LEFT VENTRICULAR HYPERTROPHY : Confirmed by: Ethan Barry MD 19-Apr-2020 05:26:58
--- NOTE | 2020-04-19 07:51 | EKG REPORT ---
SEVERITY:- ABNORMAL ECG - SINUS RHYTHM LEFT VENTRICULAR HYPERTROPHY : Confirmed by: Gabi Woodard 19-Apr-2020 07:50:51
[2020-04-19] MEDS: LISINOPRIL 10 MG TABLET PO SCH (09:12)
[2020-04-19] MEDS: ENOXAPARIN SODIUM INJ 40 MG/0.4 ML DISP.SYRIN SUBCUT SCH (09:12)
[2020-04-19] MEDS: FAMOTIDINE 20 MG TABLET PO SCH ×2 (09:12→22:15)
[2020-04-19] MEDS: ASPIRIN 81 MG TABLET, CHEWABLE PO SCH (09:12)
[2020-04-19] MEDS: HYDROCHLOROTHIAZIDE 25 MG TABLET PO SCH (09:12)
--- NOTE | 2020-04-19 10:02 | PDOC CONSULTATION ---
Consultation Consult Date: 04/19/20 Attending physician:: CONCHA PARIKH Provider Consulted: MARYANNE JEFFERY Consult reason:: Chest pain, elevated troponin History of Present Illness Admission Date/PCP: 04/19/20 01:16 ROCHELLE WHITMAN MD Patient complains of: Chest pain History of Present Illness: SELIN BUSCH is a 45 year old female with the following active problems 1. Nicotine dependence-cigarettes 2. Systemic hypertension 3. 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 Patient does not mention a clear pleuritic component. No prior mention of coronary artery disease. He reports low-grade fevers up to 100 F with cough and congestion symptoms for the last few days. Since admission to the hospital she was found to have poorly controlled hypertension. Cardiac biomarkers are also elevated. The time of my evaluation patient continues to endorse chest pain without any radiation the chest pain is pretty much left-sided. There appears to be reproducible component. No drug use other than recreational marijuana use. Pack of cigarettes lasts for a week. She smoked most of her adult life. No alc ohol use. Her parents do have heart problems. Further details not very clear. Review of systems positive for fever, congestion, chills, chest pain. No dyspnea is reported. Full 11 review of systems was asked. Pertinent positives noted here and in the HPI all other systems are negative. Past Medical History Cardiac Medical History: Reports: Hypertension Pulmonary Medical History: Denies: Tuberculosis Neurological Medical History: Reports: Migraine Endocrine Medical History: Reports: Diabetes Mellitus Type 2 Musculoskeltal Medical History: Reports: Arthritis Psychiatric Medical History: Reports: Depression Past Surgical History Past Surgical History: Reports: Cholecystectomy, Hysterectomy Social History Lives with: Family Smoking Status: Current Every Day Smoker Frequency of Alcohol Use: Social Hx Recreational Drug Use: Yes - for n/v Drugs: Marijuana - Advance Directive Resuscitation Status: Full Code Family History Family History: Arthritis, CAD, COPD, CVA, DM, Hyperlipidemia, Hypertension, Thyroid Disfunction Parental Family History Reviewed: Yes - No familial illnesses Children Family History Reviewed: NA Sibling(s) Family History Reviewed.: NA Medication/Allergy Home Medications: Dicyclomine HCl [Bentyl 20 mg Tablet] 20 mg PO QID PRN #12 tablet 04/12/20 Lisinopril/Hydrochlorothiazide [Lisinopril-Hctz 20-12.5 mg Tab] 1 each PO DAILY #30 tablet 04/12/20 Ondansetron [Zofran Odt 4 mg Tablet] 1 tab PO Q6H #15 tab.rapdis 04/12/20 Allergies/Adverse Reactions: tramadol Allergy (Severe, Verified 07/20/17 12:04) Edema oxycodone HCl [From Percocet] Allergy (Verified 07/20/17 12:04) Review of Systems Constitutional: PRESENT: as per HPI Eyes: PRESENT: as per HPI Cardiovascular: PRESENT: chest pain Respiratory: PRESENT: cough Neurological: ABSENT: as per HPI, abnormal gait, abnormal movements, abnormal speech, confusion, convulsions, dizziness, focal weakness, frequent falls, lack of coordination, memory loss, numbness, paresthesias, restless legs, syncope, tingling, tremor(s), vertigo, weakness, other Psychiatric: ABSENT: as per HPI, anxiety, depression, hallucinations, homidical ideation, suicidal ideation, other Hematologic/Lymphatic: ABSENT: as per HPI, easy bleeding, easy bruising, lymphad enopathy, other Physical Exam Vital Signs: Temp Pulse Resp BP Pulse Ox 97.6 F 64 16 156/89 H 99 04/19/20 04:24 04/19/20 04:56 04/19/20 04:24 04/19/20 04:24 04/19/20 04:24 Intake & Output 04/18/20 04/19/20 04/20/20 06:59 06:59 06:59 Intake Total 260 Balance 260 Weight 99.1 kg General appearance: PRESENT: no acute distress, cooperative, well-developed, well-nourished Head exam: PRESENT: atraumatic, normocephalic Eye exam: PRESENT: conjunctiva pink, EOMI Mouth exam: PRESENT: moist Respiratory exam: PRESENT: clear to auscultation gisel, symmetrical, unlabored Cardiovascular exam: PRESENT: RRR, +S1, +S2, other - Reproducible chest tende rness left side of the chest wall between 2-4 intercostal spaces anterior chest wall. Pulses: PRESENT: normal radial pulses GI/Abdominal exam: PRESENT: soft Rectal exam: PRESENT: deferred Musculoskeletal exam: PRESENT: normal inspection Neurological exam: PRESENT: alert, awake, oriented to person, oriented to place, oriented to time, oriented to situation Skin exam: PRESENT: dry, intact Results Laboratory Results: 04/18/20 22:20 04/18/20 22:20 04/18/20 04/18/20 04/18/20 22:20 22:20 22:20 WBC 13.7 H RBC 4.79 Hgb 13.3 Hct 39.9 MCV 83 MCH 27.9 MCHC 33.4 RDW 14.7 H Plt Count 409 Seg Neutrophils % 55.5 Sodium 138.8 Potassium 4.1 Chloride 107 Carbon Dioxide 21 L Anion Gap 11 BUN 16 Creatinine 0.81 Est GFR ( Amer) > 60 Glucose 104 Calcium 10.0 Total Bilirubin 0.3 AST 16 Alkaline Phosphatase 55 C-Reactive Protein Total Protein 7.1 Albumin 4.2 Triglycerides Cholesterol LDL Cholesterol Direct VLDL Cholesterol HDL Cholesterol Urine Color YELLOW Urine Appearance SLIGHTLY-CLOUDY Urine pH 5.0 Ur Specific [place] 1.021 Urine Protein NEGATIVE Urine Glucose (UA) NEGATIVE Urine Ketones NEGATIVE Urine Blood SMALL H Urine RBC (Auto) 12 04/18/20 04/19/20 22:22 04:10 WBC RBC Hgb Hct MCV MCH MCHC RDW Plt Count Seg Neutrophils % Sodium Potassium Chloride Carbon Dioxide Anion Gap BUN Creatinine Est GFR ( Amer) Glucose Calcium Total Bilirubin AST Alkaline Phosphatase C-Reactive Protein 9.4 Total Protein Albumin Triglycerides 193 H Cholesterol 212.59 H LDL Cholesterol Direct 151 H VLDL Cholesterol 38.6 H HDL Cholesterol 40 Urine Color Urine Appearance Urine pH Ur Specific [place] Urine Protein Urine Glucose (UA) Urine Ketones Urine Blood Urine RBC (Auto) 04/18/20 04/18/20 04/19/20 22:20 22:20 04:10 Troponin I 0.611 1.410 NT-Pro-B Natriuret Pep 441 H EKG Comments: Twelve-lead EKG 04/19/2020 Sinus bradycardia, 51 bpm, left ventricular hypertrophy. Normal AV conduction, QTC is 432 ms Twelve-lead EKG 04/18/2020 2109 Sinus bradycardia 59 bpm, left ventricular hypertrophy, QTC is 428 ms COVID-19 has not been assessed Influenza a and B are negative Troponin 0 0.611 1.41 Chest x-ray 04/18/2020 no active disease Impressions: Chest X-Ray 04/18/20 21:47 IMPRESSION: No active disease. Assessment & Plan - Diagnosis (1) Hypertension Qualifiers: Hypertension type: unspecified Qualified Code(s): I10 - Essential (primary) hypertension Is this a current diagnosis for this admission?: Yes Plan: Poorly controlled hypertension Noncompliance is also reported Presently on lisinopril 20 mg daily On hydrochlorothiazide as well Consider adding beta-anival especially with elevated troponin although ACS is less likely. She may need additional antihypertensive medications Hydralazine 10 mg IV every 4 to 6 hours as needed for better control of blood p ressure. (2) Elevated troponin Is this a current diagnosis for this admission?: Yes Plan: Likely demand mediated ischemia versus other possible etiologies given presentation with viral prodrome and symptoms to include myocarditis and myopericarditis. There is definitely reproducible chest pain on along the left anterior chest wal l EKG does not reveal any ischemic changes This makes acute coronary syndrome less likely. Demand mediated ischemia is in the differential but the level of troponin elevation is over 1. Continue aspirin 81 mg daily Continue atorvastatin 40 mg daily Initiate metoprolol 25 mg twice daily We will check echocardiogram l (3) Chest pain Is this a current diagnosis for this admission?: Yes Plan: Reproducible left-sided chest pain Description of symptoms and persistent nature of pain do not suggest ongoing myocardial ischemia EKG without diagnostic ischemic changes to suggest myocardial ischemia However troponin is elevated Myocarditis is in the differential given viral symptoms We will check transthoracic echocardiogram We will hold off on heparinization especially given blood pressure is elevated and due to the fact that pain is more musculoskeletal
[2020-04-19] MEDS: METOPROLOL SUCCINATE 25 MG TAB.SR.24H PO SCH ×2 (11:45→22:15)
[2020-04-19] MEDS: NITROGLYCERIN 0.4 MG/TAB 25 TAB/BOTTLE SL PRN ×3 (16:08→16:32)
--- NOTE | 2020-04-19 16:44 | Progress Note ---
Provider Note Provider Note: Patient seen and evaluated by me. I discussed the case with cardiology and I agree with Dr. Barry the patient very well could have COVID-19 despite having a negative test previously. It is concerning that she may have viral myocarditis given the rising troponin. I was notified by nursing the patient had worse c hest pain that was not relieved by nitroglycerin I have ordered some morphine. Nursing will reach out to Dr. Barry and see if there is anything we should be doing besides getting cardiac enzymes. I reviewed the EKG and it showed diffuse mild ST elevation likely consistent with pericarditis. Echocardiogram was already ordered this morning but this was not done yet and nursing will contact equipment maintenance technician to get this done.
[2020-04-19] MEDS: MORPHINE SULFATE 10 MG/ML INJ IV PRN (17:06)
[2020-04-19 18:55] LABS: CREATINE KINASE MB 11.8 ng/mL (<4.55)
--- NOTE | 2020-04-19 19:37 | XCELERA REPORT ---
[address] [address] Transthoracic Echocardiogram Report Name: SELIN BUSCH Age: 45 yrs Gender: Female : 1975 Patient Status: Inpatient Patient Location: [facility]A Study Date: 04/19/2020 06:20 PM History: Elevated Troponin Chest pain Height: 66 in Weight: 218 lb BSA: 2.1 m2 Procedure: A complete two-dimensional transthoracic echocardiogram was performed (2D, M-mode, spectral and color flow Doppler). The study was technically adequate with some images being suboptimal in quality. Reason For Study: positive trop- dr jeana galloway. Previous Evaluation: No previous studies were available. History: Chest pain. HTN. Elevated Troponin Chest pain. Ordering Physician: CONCHA PARIKH Performed By: Chica Menjivar Interpretation Summary Left ventricular systolic function is normal. The Ejection Fraction estimate is 55-60% The right ventricle is normal in size and function. There is no mitral regurgitation noted. There is no aortic valve stenosis There is a trace amount of tricuspid regurgitation There is no pericardial effusion. MMode/2D Measurements & Calculations RVDd: 3.0 cm LVIDd: 4.6 cm FS: 31.1 % Ao root diam: 2.6 cm IVSd: 1.2 cm LVIDs: 3.2 cm EDV(Teich): 97.6 ml Ao root area: 5.2 cm2 LVPWd: 1.0 cm ESV(Teich): 40.1 ml LA dimension: 3.5 cm EF(Teich): 58.9 % Doppler Measurements & Calculations MV E max roland: MV P1/2t max roland: Ao V2 max: LV V1 max P.4 cm/sec 95.7 cm/sec 162.3 cm/sec 5.5 mmHg MV A max roland: MV P1/2t: 91.3 msec Ao max PG: LV V1 max: 66.6 cm/sec MVA(P1/2t): 2.4 cm2 10.5 mmHg 117.5 cm/sec MV E/A: 1.3 MV dec slope: 307.1 cm/sec2 MV dec time: 0.25 sec PA V2 max: MV P1/2t-pr_phl: 93.3 cm/sec 91.3 msec PA max P.5 mmHg Left Ventricle The left ventricle is normal in size. Left ventricular systolic function is normal. The Ejection Fraction estimate is 55-60%. Doppler measurements suggest pseudonormalized left ventricular relaxation, which is associated with grade II/IV or mild to moderate diastolic dysfunction. No regional wall motion abnormalities noted. Right Ventricle The right ventricle is normal in size and function. Mitral Valve The mitral valve is grossly normal. There is no evidence of mitral valve prolapse. There is no mitral valve stenosis. There is no mitral regurgitation noted. Aortic Valve The aortic valve is trileaflet. The aortic valve opens well. The aortic valve is normal in structure and function. There is no aortic valve stenosis. No aortic regurgitation is present. Tricuspid Valve The tricuspid valve is normal in structure and function. There is no tricuspid stenosis. There is a trace amount of tricuspid regurgitation. Tricuspid regurgitation jet envelope not well defined to measure RV systolic pressure accurately. Pulmonic Valve The pulmonic valve is normal in structure and function. There is no pulmonic valvular stenosis. There is a trace amount of pulmonic regurgitation. Great Vessels The aortic root is normal size. The inferior vena cava appeared normal and decreased > 50% with respiration (RAP 5-10 mmHg). Effusions There is no pericardial effusion. : CONCHA PARIKH Anil
--- NOTE | 2020-04-19 22:47 | EKG REPORT ---
SEVERITY:- ABNORMAL ECG - SINUS RHYTHM CONSIDER LEFT VENTRICULAR HYPERTROPHY ST ELEVATION SUGGESTS PERICARDITIS BORDERLINE PROLONGED QT INTERVAL : Confirmed by: Gabi Woodard 19-Apr-2020 22:47:13
[2020-04-20] MEDS: MORPHINE SULFATE 10 MG/ML INJ IV PRN ×3 (00:52→15:07)
[2020-04-20 00:59] LABS: CREATINE KINASE MB 8.13 ng/mL (<4.55); TROPONIN I 1.63 ng/mL
[2020-04-20 06:41] LABS: ABSOLUTE EOSINOPHILS # (AUTO) 0.1 10^3/uL (0.0-0.6); ABSOLUTE LYMPHOCYTES (AUTO) 2.6 10^3/uL (0.5-4.7); ABSOLUTE MONOCYTES (AUTO) 0.7 10^3/uL (0.1-1.4); ABSOLUTE NEUT (AUTO) 6.6 10^3/uL (1.7-8.2); BASOPHILS % (AUTO) 0.3 % (0-2); EOSINOPHILS % (AUTO) 0.6 % (0-6); HEMOGLOBIN 13.3 g/dL (12.0-15.5); LYMPHOCYTES % (AUTO) 26.2 % (13-45); MEAN CORPUSCULAR HEMOGLOBIN 27.7 pg (27.0-33.4); MEAN CORPUSCULAR HGB CONC 33.3 g/dL (32.0-36.0); MEAN CORPUSCULAR VOLUME 83 fl (80-97); MONOCYTES % (AUTO) 6.8 % (3-13); PLATELET COUNT 367 10^3/uL (150-450); RED BLOOD COUNT 4.82 10^6/uL (3.72-5.28); SEGMENTED NEUTROPHILS % (AUTO) 66.1 % (42-78); TOTAL CELLS COUNTED % (AUTO) 100 %
[2020-04-20 07:06] LABS: ANION GAP 9 (5-19); BLOOD UREA NITROGEN 12 mg/dL (7-20); CALCIUM 9.7 mg/dL (8.4-10.2); CARBON DIOXIDE 25 mmol/L (22-30); CHLORIDE 106 mmol/L (98-107); CREATINE KINASE 90 U/L (30-135); GLUCOSE 106 mg/dL (75-110); POTASSIUM 4.3 mmol/L (3.6-5.0)
[2020-04-20 07:19] LABS: CREATINE KINASE MB 5.24 ng/mL (<4.55); TROPONIN I 1.07 ng/mL
[2020-04-20] MEDS ORDERED: IBUPROFEN 600 MG TABLET PO PRN (09:06)
[2020-04-20] MEDS: HYDROCHLOROTHIAZIDE 25 MG TABLET PO SCH (09:34)
[2020-04-20] MEDS: LISINOPRIL 10 MG TABLET PO SCH (09:35)
[2020-04-20] MEDS: ASPIRIN 81 MG TABLET, CHEWABLE PO SCH (09:35)
[2020-04-20] MEDS: METOPROLOL SUCCINATE 25 MG TAB.SR.24H PO SCH (09:35)
[2020-04-20] MEDS: FAMOTIDINE 20 MG TABLET PO SCH (09:35)
[2020-04-20] MEDS: ENOXAPARIN SODIUM INJ 40 MG/0.4 ML DISP.SYRIN SUBCUT SCH (09:36)
--- NOTE | 2020-04-20 10:13 | PDOC PROGRESS REPORT ---
Subjective Date:: 04/20/20 Subjective:: Seen and examined. She seems to be more comfortable. She endorses left anterio r chest wall pain which is improved. Reason For Visit: CHEST PAIN ACS RULE OUT Physical Exam Vital Signs: Temp Pulse Resp BP Pulse Ox 98.3 F 64 22 H 131/90 H 100 04/20/20 08:00 04/20/20 08:00 04/20/20 08:00 04/20/20 08:00 04/20/20 08:00 Intake & Output 04/19/20 04/20/20 04/21/20 06:59 06:59 06:59 Intake Total 260 218 Output Total 150 Balance 260 68 Weight 99.1 kg 99.7 kg General appearance: PRESENT: no acute distress, cooperative, well-developed, well-nourished Head exam: PRESENT: atraumatic, normocephalic Eye exam: PRESENT: conjunctiva pink, EOMI Mouth exam: PRESENT: moist Respiratory exam: PRESENT: clear to auscultation gisel, symmetrical, unlabored Cardiovascular exam: PRESENT: +S1, +S2, other - Left anterior chest wall on palpation is tender. Pulses: PRESENT: normal radial pulses GI/Abdominal exam: PRESENT: soft Rectal exam: PRESENT: deferred Musculoskeletal exam: PRESENT: normal inspection Psychiatric exam: PRESENT: appropriate affect Skin exam: PRESENT: dry, intact, normal color Results Laboratory Results: 04/20/20 06:25 04/20/20 06:25 04/20/20 04/20/20 06:25 06:25 WBC 10.0 RBC 4.82 Hgb 13.3 Hct 40.0 MCV 83 MCH 27.7 MCHC 33.3 RDW 15.0 H Plt Count 367 Seg Neutrophils % 66.1 Sodium 139.9 Potassium 4.3 Chloride 106 Carbon Dioxide 25 Anion Gap 9 BUN 12 Creatinine 0.71 Est GFR ( Amer) > 60 Glucose 106 Calcium 9.7 04/18/20 04/18/20 04/19/20 22:20 22:20 04:10 Creatine Kinase CK-MB (CK-2) Troponin I 0.611 1.410 NT-Pro-B Natriuret Pep 441 H 04/19/20 04/19/20 04/19/20 10:05 17:14 17:14 Creatine Kinase 144 H CK-MB (CK-2) 11.80 H Troponin I 2.020 2.000 NT-Pro-B Natriuret Pep 04/19/20 04/19/20 04/20/20 23:12 23:12 06:25 Creatine Kinase 131 90 CK-MB (CK-2) 8.13 H Troponin I 1.630 NT-Pro-B Natriuret Pep 04/20/20 06:25 Creatine Kinase CK-MB (CK-2) 5.24 H Troponin I 1.070 NT-Pro-B Natriuret Pep EKG Comments: Cardiac troponin levels peaked at approximately 2 and have begun to decline Transthoracic echocardiogram 04/19/2020 Left ventricular ejection fraction is preserved Left ventricular hypertrophy is noted Probable moderate diastolic dysfunction No significant valve lesion There is no pericardial effusion Impressions: Chest X-Ray 04/18/20 21:47 IMPRESSION: No active disease. Assessment & Plan - Diagnosis (1) Hypertension Qualifiers: Hypertension type: unspecified Qualified Code(s): I10 - Essential (primary) hypertension Is this a current diagnosis for this admission?: Yes Plan: Blood pressure is better controlled Noncompliance noted and there is evidence of left ventricular hypertrophy as well as diastolic dysfunction on echocardiogram. Better compliance is necessary. (2) Elevated troponin Is this a current diagnosis for this admission?: Yes Plan: Elevated troponin with chest pain suggestive of pericarditis Elevation of troponin suggest myopericarditis However no wall motion abnormalities noted Would recommend continued use of NSAIDs Unlikely to be acute coronary syndrome. Troponin has begun to decline (3) Chest pain Is this a current diagnosis for this admission?: Yes Plan: Likely due to pericarditis Troponin has begun to decline Myopericarditis is suspected based on troponin elevation Echocardiogram without pericardial effusion and wall motion abnormality EKG shows diffuse ST elevation in multiple leads suggestive of pericarditis rather than ischemia. - Notes Notes: Recommend continuing NSAIDs for relief of symptoms Better control of blood pressure Outpatient follow-up is recommended. NSAIDs may need to be continued for at least a week or more. I also discussed with the patient that she may have persistent discomfort for a week or a few weeks. Elevation in troponin risk stratification is necessary but can be pursued later.
--- NOTE | 2020-04-20 13:02 | PDOC DISCHARGE SUMMARY ---
Impression - Admit/DC Date/PCP Admission Date/Primary Care Provider: 04/19/20 01:16 RCOHELLE WHITMAN MD Discharge Date: 04/20/20 - Additional Information Resuscitation Status: Full Code Discharge Diet: As Tolerated Discharge Activity: Activity As Tolerated Referrals: ROCHELLE WHITMAN MD [Primary Care Provider] - 04/27/20 12:45 pm Prescriptions: Aspirin [Aspirin 81 mg Chewable Tablet] 81 mg PO DAILY 30 Days #30 tab.chew Atorvastatin Calcium [Lipitor 40 mg Tablet] 40 mg PO QHS 30 Days #30 tablet Ibuprofen [Motrin 600 mg Tablet] 600 mg PO Q8HP PRN 7 Days #21 tablet PRN Reason: Famotidine [Pepcid 20 mg Tablet] 20 mg PO Q12 30 Days #60 tablet Metoprolol Succinate [Toprol Xl 25 mg Tab.sr] 25 mg PO Q12 30 Days #60 tab.sr.24h Home Medications: Lisinopril/Hydrochlorothiazide [Lisinopril-Hctz 20-12.5 mg Tab] 1 each PO DAILY #30 tablet 04/12/20 Aspirin [Aspirin 81 mg Chewable Tablet] 81 mg PO DAILY 30 Days #30 tab.chew 04/20/20 Atorvastatin Calcium [Lipitor 40 mg Tablet] 40 mg PO QHS 30 Days #30 tablet 04/20/20 Famotidine [Pepcid 20 mg Tablet] 20 mg PO Q12 30 Days #60 tablet 04/20/20 Ibuprofen [Motrin 600 mg Tablet] 600 mg PO Q8HP PRN 7 Days #21 tablet 04/20/20 Metoprolol Succinate [Toprol Xl 25 mg Tab.sr] 25 mg PO Q12 30 Days #60 tab.sr.24h 04/20/20 History of Present Illiness History of Present Illness: SELIN BUSCH is a 45 year old female, SELIN BUSCH is a 45 year old female with a history of poorly controlled hypertension now presents with 2 days duration of retrosternal chest pain. She described the pain as burning and heaviness, 8/10 intensity, nonradiating, aggravated when lying back and gets better with leaning forward. She also states that she feels some pain with exertion. She states that she has burning neck pain which moves to her chest. She was seen at the emergency department 7 days back after she presented with symptoms of upper respiratory tract infection with associated nausea, vomiting and was discharged home with supportive treatment. On that visit she was also found to have very high blood pressure with a systolic around 200, diastolic between 110-110 and she was started on lisinopril/HCTZ. She states that previously she used to be on antihypertensive medication but was discontinued around 4 years back by her PCP and was controlled with lifestyle modifications and has not been checking her blood pressure regularly. She was tested for COVID-19 at her last encounter and the result is negative. She denies any fever, chills, cough, palpitation, headache, blurring of vision, weakness of extremities or any numbness or tingling. Hospital Course Hospital Course: She was started on metoprolol, losartan hydrochlorothiazide for her elevated blood pressure. Cardiology was consulted regarding her chest pain. Echo showed normal LV systolic function, EF 55 to 60%. No pericardial effusion. Troponin trended down to 1.070. Per cardiology she does not need an urgent cardiac cath or stress test at the moment since findings are consistent with acute pericarditis. She was eventually discharged on ibuprofen 600 mg 3 times a day for a week, aspirin, metoprolol, losartan hydrochlorothiazide. She was told to follow-up with her primary care physician within 1 week of being discharged as well is cardiology follow-up after a few weeks. Physical Exam Vital Signs: Temp Pulse Resp BP Pulse Ox 98.3 F 64 22 H 131/90 H 100 04/20/20 08:00 04/20/20 08:00 04/20/20 08:00 04/20/20 08:00 04/20/20 08:00 Intake & Output 04/19/20 04/20/20 04/21/20 06:59 06:59 06:59 Intake Total 260 218 Output Total 150 Balance 260 68 Weight 99.1 kg 99.7 kg General appearance: PRESENT: no acute distress, cooperative Head exam: PRESENT: atraumatic, normocephalic Eye exam: PRESENT: EOMI, PERRLA Mouth exam: PRESENT: moist Neck exam: PRESENT: full ROM Respiratory exam: PRESENT: clear to auscultation gisel, symmetrical, unlabored Cardiovascular exam: PRESENT: RRR, +S1, +S2 GI/Abdominal exam: PRESENT: normal bowel sounds, soft. ABSENT: rebound, tenderness Extremities exam: PRESENT: full ROM Musculoskeletal exam: PRESENT: full ROM Neurological exam: PRESENT: alert, awake, oriented to person, oriented to place, oriented to time, oriented to situation Psychiatric exam: PRESENT: normal mood Skin exam: PRESENT: normal color Results Laboratory Results: WBC 10.0 10^3/uL (4.0-10.5) 04/20/20 06:25 RBC 4.82 10^6/uL (3.72-5.28) 04/20/20 06:25 Hgb 13.3 g/dL (12.0-15.5) 04/20/20 06:25 Hct 40.0 % (36.0-47.0) 04/20/20 06:25 MCV 83 fl (80-97) 04/20/20 06:25 MCH 27.7 pg (27.0-33.4) 04/20/20 06:25 MCHC 33.3 g/dL (32.0-36.0) 04/20/20 06:25 RDW 15.0 % (11.5-14.0) H 04/20/20 06:25 Plt Count 367 10^3/uL (150-450) 04/20/20 06:25 Lymph % (Auto) 26.2 % (13-45) 04/20/20 06:25 [place] % (Auto) 6.8 % (3-13) 04/20/20 06:25 Eos % (Auto) 0.6 % (0-6) 04/20/20 06:25 Baso % (Auto) 0.3 % (0-2) 04/20/20 06:25 Absolute Neuts (auto) 6.6 10^3/uL (1.7-8.2) 04/20/20 06:25 Absolute Lymphs (auto) 2.6 10^3/uL (0.5-4.7) 04/20/20 06:25 Absolute Monos (auto) 0.7 10^3/uL (0.1-1.4) 04/20/20 06:25 Absolute Eos (auto) 0.1 10^3/uL (0.0-0.6) 04/20/20 06:25 Absolute Basos (auto) 0.0 10^3/uL (0.0-0.2) 04/20/20 06:25 Seg Neutrophils % 66.1 % (42-78) 04/20/20 06:25 Sodium 139.9 mmol/L (137-145) 04/20/20 06:25 Potassium 4.3 mmol/L (3.6-5.0) 04/20/20 06:25 Chloride 106 mmol/L (98-107) 04/20/20 06:25 Carbon Dioxide 25 mmol/L (22-30) 04/20/20 06:25 Anion Gap 9 (5-19) 04/20/20 06:25 BUN 12 mg/dL (7-20) 04/20/20 06:25 Creatinine 0.71 mg/dL (0.52-1.25) 04/20/20 06:25 Est GFR ( Amer) > 60 (>60) 04/20/20 06:25 Est GFR (MDRD) Non-Af > 60 (>60) 04/20/20 06:25 Glucose 106 mg/dL (75-110) 04/20/20 06:25 Calcium 9.7 mg/dL (8.4-10.2) 04/20/20 06:25 Total Bilirubin 0.3 mg/dL (0.2-1.3) 04/18/20 22:20 Direct Bilirubin 0.1 mg/dL (0.0-0.4) 04/18/20 22:20 Neonat Total Bilirubin Not Reportable 04/18/20 22:20 Neonat Direct Bilirubin Not Reportable 04/18/20 22:20 Neonat Indirect Bili Not Reportable 04/18/20 22:20 AST 16 U/L (14-36) 04/18/20 22:20 ALT 11 U/L (<35) 04/18/20 22:20 Alkaline Phosphatase 55 U/L (38-126) 04/18/20 22:20 Creatine Kinase 90 U/L (30-135) 04/20/20 06:25 CK-MB (CK-2) 5.24 ng/mL (<4.55) H 04/20/20 06:25 Troponin I 1.070 ng/mL 04/20/20 06:25 C-Reactive Protein 9.4 mg/L (<10.0) 04/18/20 22:22 NT-Pro-B Natriuret Pep 441 pg/mL (<125) H 04/18/20 22:20 Total Protein 7.1 g/dL (6.3-8.2) 04/18/20 22:20 Albumin 4.2 g/dL (3.5-5.0) 04/18/20 22:20 Triglycerides 193 mg/dL (<150) H 04/19/20 04:10 Cholesterol 212.59 mg/dL (0-200) H 04/19/20 04:10 LDL Cholesterol Direct 151 mg/dL (<100) H 04/19/20 04:10 VLDL Cholesterol 38.6 mg/dL (10-31) H 04/19/20 04:10 HDL Cholesterol 40 mg/dL (>40) 04/19/20 04:10 Urine Color YELLOW 04/18/20 22:20 Urine Appearance SLIGHTLY-CLOUDY 04/18/20 22:20 Urine pH 5.0 (5.0-9.0) 04/18/20 22:20 Ur Specific [place] 1.021 04/18/20 22:20 Urine Protein NEGATIVE mg/dL (NEGATIVE) 04/18/20 22:20 Urine Glucose (UA) NEGATIVE mg/dL (NEGATIVE) 04/18/20 22:20 Urine Ketones NEGATIVE mg/dL (NEGATIVE) 04/18/20 22:20 Urine Blood SMALL (NEGATIVE) H 04/18/20 22:20 Urine Nitrite (Reflex) NEGATIVE (NEGATIVE) 04/18/20 22:20 Urine Bilirubin NEGATIVE (NEGATIVE) 04/18/20 22:20 Urine Urobilinogen NEGATIVE mg/dL (<2.0) 04/18/20 22:20 Leukocyte Esterase Rfl LARGE (NEGATIVE) H 04/18/20 22:20 Urine RBC (Auto) 12 /HPF 04/18/20 22:20 Urine Bacteria (Auto) TRACE /HPF 04/18/20 22:20 Urine WBC (Reflex) 23 /HPF 04/18/20 22:20 Squamous Epi Cells Auto 4 /HPF 04/18/20 22:20 Urine Mucus (Auto) RARE /LPF 04/18/20 22:20 Urine Ascorbic Acid NEGATIVE (NEGATIVE) 04/18/20 22:20 COVID-19 Source See comment 04/19/20 10:40 COVID-19 (JANELLE) Not Detected (Not Detect) 04/19/20 10:40 Influenza A (Rapid) NEGATIVE (NEGATIVE) 04/18/20 22:20 Influenza B (Rapid) NEGATIVE (NEGATIVE) 04/18/20 22:20 Group A Strep Rapid NEGATIVE (NEGATIVE) 04/18/20 22:20 04/18/20 04/18/20 04/19/20 22:20 22:20 04:10 CK-MB (CK-2) Troponin I 0.611 1.410 NT-Pro-B Natriuret Pep 441 H 04/19/20 04/19/20 04/19/20 10:05 17:14 23:12 CK-MB (CK-2) 11.80 H 8.13 H Troponin I 2.020 2.000 1.630 NT-Pro-B Natriuret Pep 04/20/20 06:25 CK-MB (CK-2) 5.24 H Troponin I 1.070 NT-Pro-B Natriuret Pep Impressions: Chest X-Ray 04/18/20 21:47 IMPRESSION: No active disease. Plan Health Concerns: Pericarditis You have a condition known as pericarditis. This is an inflammation in the sack surrounding the heart, called the pericardium. Often no cause can be identified. It is usually due to viral infection, but can be caused by tumors, heart attacks, tuberculosis, kidney disease, and other conditions. Your physician's examination has determined that hospitalization is not necessary. Pericarditis is treated with antiinflammatory medication. Typically, the symptoms will subside within a few days. Pain medication may be required. You should call the doctor if you develop increasing pain, shortness of breath, fever, lightheadedness or weakness, or swelling in the feet or ankles. Plan of Treatment: Started on ibuprofen 600 mg 3 times a day ff.up up with primary care Time Spent: Less than 30 Minutes Stroke Is this a Stroke Patient?: No Acute Heart Failure Is this a Heart Failure Patient?: No
[2020-04-20 15:50] VITALS: BP 139/81
== END 2020-04-20 15:45 | disposition home or self-care (01) ==
LOC: ER 20:51 → EH 04-19 01:16 → 4N 04-19 04:23 → 3N 04-19 14:50 → 4S 04-20 10:52
PROVIDERS: ADMIT Student in an Organized Health Care Education/Training Program; ATTEND Internal Medicine
DX: I31.9 Disease of pericardium, unspecified (principal); I10 Essential (primary) hypertension; F17.210 Nicotine dependence, cigarettes, uncomplicated; Z91.14 Patient's other noncompliance with medication regimen; R77.8 Other specified abnormalities of plasma proteins; R50.9 Fever, unspecified; R05 Cough; R00.1 Bradycardia, unspecified; E66.01 Morbid (severe) obesity due to excess calories; R11.2 Nausea with vomiting, unspecified; R19.7 Diarrhea, unspecified; Z20.828 Contact with and (suspected) exposure to other viral communicable diseases; Z82.49 Family history of ischemic heart disease and other diseases of the circulatory system
CPT/HCPCS: 93005 ×2; 99285; 96374; 96375; 36415 ×3; 87070; 82553 ×2; 87880; 82550 ×2; 85025 ×2; 87635; 86140; 80048; 80053; 81001; 84484 ×3; 80061; 87804; 83880; 93306; 71045; 93010 ×2; 99406; G0378 ×2; J3010; J2270 ×2; J1650 ×2; J2405; C9803